=== PATIENT | male | born 1970 | race Caucasian/White ===

== ENCOUNTER 2016-06-10 21:29 | Emergency (ER) | payer BC ==
[2016-06-10 21:42] VITALS: BP 121/70; PULSE 68; RESP 18; TEMP 98
[2016-06-10] MEDS ORDERED: DIPH,PERTUS(ACELL)TETVAC-LF 0.5 ML VIAL IM ONE (21:50)
[2016-06-10] MEDS ORDERED: TOPICAL SKIN ADHESIVE 1 EACH AMP TOPICAL ONE (21:50)
--- NOTE | 2016-06-10 21:55 | ED ---
Wound/Laceration HPI - General Chief Complaint: Wound/Laceration Stated Complaint: eye injury Time Seen by Provider: 06/10/16 21:44 Source: patient, RN notes reviewed Mode of arrival: ambulatory Limitations: no limitations - History of Present Illness Initial Comments: Patient is a 45-year-old male who presents to the emergency room for right upper eyelid laceration. Patient states that he was playing around with his children and his glasses ran into his eye. Patient denies loss of consciousness or changes in vision. Patient states the laceration area was bleeding so he applied ice to the area. Patient states the ice did reduce the amount of bleeding and swelling to the area. Patient states that he afraid the laceration will open up again when he goes to sleep. Patient states he wanted to have the laceration evaluated in case he needed stitches. Patient denies taking any blood thinners. Patient states he's not sure when his last tetanus vaccine was. Patient denies any other injuries or complaints at this time. - Related Data Home Medications Medication Instructions Recorded Confirmed No Known Home Medications [No 04/20/16 06/10/16 Known Home Medications] Allergies Allergy/AdvReac Type Severity Reaction Status Date / Time No Known Allergies Allergy Verified 06/10/16 21:42 Review of Systems ROS Statement: Those systems with pertinent positive or pertinent negative responses have been documented in the HPI. ROS Other: All systems not noted in ROS Statement are negative. 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 Limitations: no limitations General appearance: alert, in no apparent distress Head exam: Present: atraumatic, normocephalic, normal inspection Expanded 1 - 1cm laceration Eye exam: Present: normal appearance, PERRL, EOMI, other (1 cm linear laceration on the upper eyelid just inferior to the lateral right eyebrow) Pupils: Present: normal accommodation ENT exam: Present: normal exam Neck exam: Present: normal inspection Respiratory exam: Absent: respiratory distress Extremities exam: Present: normal inspection Back exam: Present: normal inspection Neurological exam: Present: alert, oriented X3, CN II-XII intact, normal gait Psychiatric exam: Present: normal affect, normal mood Skin exam: Present: warm, dry. Absent: rash Course Vital Signs 06/10/16 21:38 Temperature 98.0 F Pulse Rate 68 Respiratory 18 Rate Blood Pressure 121/70 O2 Sat by Pulse 98 Oximetry Procedures - Laceration Laceration #1 Consent Obtained: verbal consent Indication: laceration Site: other (right upper eyelid) Size (cm): 1 Description: linear Depth: simple, single layer Pre-repair: wound explored Type of Sutures: other (dermabond) Patient Tolerated Procedure: well, no complications Medical Decision Making - Medical Decision Making Patient is a 45-year-old male presents emergency room for evaluation of right upper eyelid laceration. Laceration repaired with Dermabond. Patient was updated on his tetanus vaccine. Advised patient to return for any worsening symptoms. Patient states he understands everything that was discussed with him. Case discussed with Dr. Gold. Disposition Clinical Impression: Eyelid laceration, right Disposition: HOME SELF-CARE Condition: Good Instructions: Facial Laceration (ED), Skin Adhesive Care (ED) Additional Instructions: Do not get Dermabond area wet. Dermabond will fall off in its own in 5-10 days. Take Tylenol or Motrin as needed for discomfort. If any new symptom arises or symptoms worsen. return to ER as soon as possible. Referrals: Bola Paulson MD [Primary Care Provider] - 1-2 days Time of Disposition: 21:57
== END 2016-06-10 22:13 | disposition home or self-care (01) ==
LOC: EC 21:29
DX: S01.111A Laceration without foreign body of right eyelid and periocular area, initial encounter (principal); Z23 Encounter for immunization; X58.XXXA Exposure to other specified factors, initial encounter
CPT/HCPCS: 12011; 90471; 90715; 99282

== ENCOUNTER → 2021-10-24 | Outpatient (CLI) | payer BC | END | disposition home or self-care (01) | LOC: LABWHC1 09:36 | PROVIDERS: ATTEND Family Medicine | DX: M54.89 Other dorsalgia (principal); D89.9 Disorder involving the immune mechanism, unspecified; E63.9 Nutritional deficiency, unspecified; R53.83 Other fatigue; B00.1 Herpesviral vesicular dermatitis; R79.89 Other specified abnormal findings of blood chemistry; B99.9 Unspecified infectious disease; E27.9 Disorder of adrenal gland, unspecified; E34.9 Endocrine disorder, unspecified | CPT/HCPCS: 36415; 86694; 86695; 86696 ==

== ENCOUNTER → 2022-05-26 | Outpatient (CLI) | payer BC ==
[2022-05-26 15:55] LABS: ALT 36 U/L (10-49); AST 33 U/L (14-35); African American GFR (CKD) 91.6 (60.0-200.0); Albumin 4.7 g/dL (3.8-4.9); Albumin/Globulin Ratio 2.15 (1.60-3.17); Alkaline Phosphatase 70 U/L (41-126); BUN/Creat Ratio 14.44 Ratio (12.00-20.00); Blood Urea Nitrogen 15.6 mg/dL (9.0-27.0); C Reactive Protein <0.30 mg/dL (0.00-0.80); Calcium 9.5 mg/dL (8.7-10.3); Carbon Dioxide 28.7 mmol/L (20.0-27.5); Chloride 104 mmol/L (96-109); Globulin 2.2 g/dL (1.6-3.3); Glucose 94 mg/dL (70-110); Non-African American GFR(CKD) 79.1 (60.0-200.0); Potassium 4.2 mmol/L (3.5-5.5); Sodium 143 mmol/L (135-145); Total Protein 6.9 g/dL (6.2-8.2)
== END | disposition home or self-care (01) ==
LOC: LABWHC1 08:40
PROVIDERS: ATTEND Family Medicine
DX: M54.89 Other dorsalgia (principal); D89.9 Disorder involving the immune mechanism, unspecified; E63.9 Nutritional deficiency, unspecified; B00.1 Herpesviral vesicular dermatitis; B99.9 Unspecified infectious disease; E27.9 Disorder of adrenal gland, unspecified; E34.9 Endocrine disorder, unspecified; R53.83 Other fatigue; R79.89 Other specified abnormal findings of blood chemistry
CPT/HCPCS: 36415; 80053; 83036; 83090; 83704; 86140

== ENCOUNTER → 2023-01-15 | Outpatient (CLI) | payer BC ==
[2023-01-15 16:33] LABS: ALT 37 U/L (10-49); AST 30 U/L (14-35); Albumin 4.7 d/dL (3.8-4.9); Albumin/Globulin Ratio 2.14 Ratio (1.60-3.17); Alkaline Phosphatase 84 U/L (41-126); BUN/Creat Ratio 13.73 Ratio (12.00-20.00); Blood Urea Nitrogen 15.1 mg/dL (9.0-27.0); Calcium 9.8 mg/dL (8.7-10.3); Carbon Dioxide 27.9 mmol/L (21.6-31.8); Chloride 104 mmol/L (96-109); Globulin 2.2 d/dL (1.6-3.3); Glucose 102 mg/dL (70-110); Potassium 4.5 mmol/L (3.5-5.5); Sodium 143 mmol/L (135-145); T4, Free (Free Thyroxine) 1.13 ng/dL (0.80-1.80); Total Bilirubin 0.4 mg/dL (0.3-1.2); Total Protein 6.9 d/dL (6.2-8.2)
[2023-01-15 20:51] LABS: Basophils # (A) 0.04 X 10*3/uL (0.00-0.10); Basophils % (A) 0.9 %; Eosinophils # (A) 0.11 X 10*3/uL (0.04-0.35); Eosinophils % (A) 2.6 %; HCT 44.1 % (39.6-50.0); HGB 15.2 d/dL (13.0-17.0); Lymphocytes # (A) 1.54 X 10*3/uL (0.90-5.00); Lymphocytes % (A) 36.1 %; MCH 31.9 pg (27.0-32.0); MCHC 34.5 d/dL (32.0-37.0); MCV 92.6 FL (80.0-97.0); Mean Platelet Volume 10.5 FL (9.5-12.2); Monocytes # (A) 0.43 X 10*3/uL (0.20-1.00); Monocytes % (A) 10.1 %; NRBC Per 100 WBC 0 X 10*3/uL (0.00-0.01); Neutrophils # (A) 2.12 X 10*3/uL (1.80-7.70); Neutrophils % (A) 49.6 %; Platelet Count 216 X 10*3/uL (140-440); RBC 4.76 X 10*6/uL (4.40-5.60); RDW 12.6 % (11.5-14.5); WBC 4.27 X 10*3/uL (4.50-10.00)
[2023-01-18 16:47] LABS: Large VLDL Particle Number,NMR 1.9 nmol/L (<=2.7)
[2023-01-19 15:42] LABS: Calcitonin <2 pg/mL (<18)
== END | disposition home or self-care (01) ==
LOC: LABWHC1 07:58
PROVIDERS: ATTEND Family Medicine
DX: D89.9 Disorder involving the immune mechanism, unspecified (principal); E27.9 Disorder of adrenal gland, unspecified; E34.9 Endocrine disorder, unspecified; E63.9 Nutritional deficiency, unspecified; M54.89 Other dorsalgia; B00.1 Herpesviral vesicular dermatitis; R53.83 Other fatigue; R79.89 Other specified abnormal findings of blood chemistry
CPT/HCPCS: 36415; 80053; 82306; 82308; 82607; 83036; 83090; 83704; 84153; 84403; 84439; 84443; 84481; 84482; 85025; 86141